=== PATIENT | female | born 1965 | race Caucasian/White ===

== ENCOUNTER 2016-08-27 23:04 | Inpatient (IN) | payer SELFPAY ==
--- NOTE | ~2016-08-27 | DS ---
Discharge Summary [facility] [id number] [place]. [address] NAME: CELINA JOSE : 67 STATUS : DIS IN PAT#: [id number] AGE: 51 ADM/REG DATE : 08/28/16 MR#: [id number] REPORT SERV DATE: 09/04/16 DICTATED BY: DATE: REPORT STATUS : Draft TRANSCRIBED BY: MODL DATE: 09/03/16 ADMISSION DATE: 08/28/2016 DISCHARGE DATE: 09/03/2016 DISCHARGE DIAGNOSES: 1. Acute hepatitis C. 2. Rule out pancreatic mass. 3. Increased liver function tests secondary to acute hepatitis C. 4. Portal hypertension. 5. Current IV drug use of heroin. 6. History of opioid abuse. 7. Thrombocytopenia. 8. Transaminitis. 9. Tobacco abuse. 10.Abnormal gallbladder on contrasted CT. CONSULTATIONS: 1. Dr. Susan Ling with hepatology. 2. [facility] with GI. 3. Dr. Teixeira with General surgery. PROCEDURES AND IMAGIN. On 08/28/2016, portable chest x-ray showed bibasilar atelectasis, right greater than left. Otherwise, no acute cardiopulmonary abnormality. 2. Hepatic echo showed a discrete mass at the head of the pancreas with gallbladder abnormality suggesting chronic cholecystitis. 3. On 08/29/2016, MRI of the abdomen without contrast showed:. a. Increasing severe gallbladder wall edema with wall thickness greater than 1.5 cm in width and increasing right abdominal mild ascites and fat stranding. b. No clear pancreatic mass lesion noticed on this noncontrast MRI. There are mild periportal/aortocaval enlarged lymph nodes. c. Periportal edema and few small subcentimeter cysts on the liver. d. Borderline splenomegaly. 4. On 08/31/2016, CT of the pancreas with and without contrast showed soft tissue mass adjacent to the head of the pancreas measuring 2.7 mm x 1.6 mm consistent with an enlarged lymph node. 5. On 09/03/2016, an upper EUS was done that showed unremarkable examination of the pancreas and biliary tree with no suggestion of a pancreatic mass or pathologic lymph node. HOSPITAL COURSE: This is a 51-year-old female with no medical history, presenting with fever, chills, and cough for three days. Please see admission H and P by Dr. Sukumar Castrejon. At that time, the patient's AST was 1355 and ALT was 1336. Alkaline phosphatase was 471. Consultation was placed to GI for evaluation of acute hepatitis and possible pancreatic mass. Please see dictation by PHAN Bedoya, on 08/29/2016. Please see dictation of interim discharge, by Elmo Vazquez NP, on 09/03/2016. Discharge Summary [address] [address] NAME: CELINA JOSE : 67 STATUS : DIS IN PAT#: [id number] AGE: 51 ADM/REG DATE : 08/28/16 MR#: [id number] REPORT SERV DATE: 09/04/16 DICTATED BY: DATE: REPORT STATUS : Draft TRANSCRIBED BY: KIKI DATE: 09/03/16 During his consultations with the patient, she did admit of a significant history of IV drug use with heroin and opioid dependence and abuse. At that time, he initiated a low-dose fentanyl patch since she was high risk for withdrawal and subsequent decompensation. The patient also has a history of tobacco abuse, and upon my discussion with her about that today, the patient states that she only smokes maybe two cigarettes a day and has refused her Habitrol patch which he had ordered. She has been going outside to smoke with a running IV and has been seen across the street off the campus with her IV pump. The patient has also had extensive discussion with case management about a possible drug rehab discharge, and the patient has expressed no interest in rehab facilities. The patient has been living in an abandoned house according to Case Management, and the patient desires to go back there. The patient's liver enzymes and viral load as well as her RNA have continued to be extremely elevated. It was suggested that the patient follow up with Dr. Ling and the [facility] regarding her ongoing symptomatology. The patient is reluctant to have appointments made at this time. Due to the patient's current heroin use, we will not be ordering any fentanyl patches upon her discharge. The patient is aware that her gallbladder will need to be removed at a later date and is familiar with Dr. Teixeira and will follow up with him if needed. The patient has had diminishing signs and symptoms of her hepatitis since admission and today states she is feeling back to baseline. PHYSICAL EXAMINATION: VITAL SIGNS: Blood pressure 102/69, O2 saturation is 94% on room, temperature is 96.9, and heart rate is 85. HEENT: Head is atraumatic and normocephalic. Pupils are equal, round, and reactive to light. Sclerae are clear and nonicteric. NECK: Neck is supple with no palpable lymphadenopathy or thyromegaly. Neck veins are flat. CARDIAC: S1 and S2 with no obvious murmurs, rubs, or gallops. LUNGS: Clear to auscultation with normal respiratory effort. GI: Abdomen is firm in right upper quadrant and tender to palpation. Otherwise, it is soft and nontender in remaining three quadrants. Bowel sounds are active in three quadrants. The patient has normal bowel habitus. EXTREMITIES: No significant edema, clubbing, or cyanosis. All pulses are present and equal bilaterally. MUSCULOSKELETAL: Moves all extremities x4. The patient is ambulatory without assistance. No difficulties with balance. SKIN: Dry and intact with normal color and turgor. NEUROPSYCHIATRIC: The patient is alert and oriented x4, pleasant, and cooperative. DISCHARGE DIET: Low fat. DISCHARGE MEDICATIONS: There are none. ALLERGIES: THE PATIENT HAS NO KNOWN DRUG ALLERGIES. DISCHARGE INSTRUCTIONS: The patient is to follow up with Dr. Ling in one month, Dr. Teixeira as needed for her gallbladder, and Dr. Cleveland and Dr. Art as needed. Should the patient have any more episodes such as those that brought her in, she is to call her PCP or present to the ER. Discharge Summary [address] [address] NAME: CELINA JOSE : 67 STATUS : DIS IN PAT#: [id number] AGE: 51 ADM/REG DATE : 08/28/16 MR#: [id number] REPORT SERV DATE: 09/04/16 DICTATED BY: DATE: REPORT STATUS : Draft TRANSCRIBED BY: MODL DATE: 09/03/16 Approximately 30 minutes has been spent coordinating discharge care of this patient including [id number] encounter and summarization of the discharge. VIOLET/KIKI Rupal Lala NP / [id number] CC: Otilio Llamas MD
--- NOTE | ~2016-08-27 | HP ---
History And Physical [facility] [address] [place]. [address] NAME: CELINA JOSE : 67 STATUS : ADM IN [facility]#: [id number] AGE: 51 ADM/REG DATE : 08/28/16 MR#: [id number] REPORT SERV DATE: 08/28/16 DICTATED BY: SUKUMAR CASTREJON DATE: 08/28/16 REPORT STATUS : Draft TRANSCRIBED BY: MODFarzana DATE: 08/28/16 DATE OF ADMISSION: 08/27/2016 CHIEF COMPLAINT: Fevers and chills with cough. HISTORY OF PRESENT ILLNESS: This is a 51-year-old lady with no medical history presenting with fevers, chills, and cough for three days. The patient reports the cough is nonproductive and she has experienced some mild shortness of breath along with the cough. The patient came to the ER for further evaluation and care. In the ER, the patient was indeed found to be febrile to 101.1. The patient was also slightly tachycardic and tachypneic. The patient was then found to have elevated LFTs as well as CT of the abdomen and pelvis showing possible diffuse colitis. The patient however did not have any complaints of abdominal pain. The patient did admit to having some loose stools, but nothing that really concerned her. Internal Medicine consultation was requested for admission of the patient for further evaluation and care. REVIEW OF SYSTEMS: The patient has had fevers and chills at home. Otherwise, 14-point review of systems reviewed and negative other than mentioned above. MEDICATIONS: The patient does not take any medications at home. The patient reports that she has not taken any acetaminophen at home, but with questionable reliability. ALLERGIES: NKDA. PAST MEDICAL HISTORY: None. PAST SURGICAL HISTORY: Hysterectomy. FAMILY HISTORY: The patient denies any specific family history. SOCIAL HISTORY: The patient does smoke, but does not drink alcohol or use any illicit drugs. The patient lives at home with her . PHYSICAL EXAMINATION: VITAL SIGNS: Temperature 101.1, blood pressure 115/62, pulse 103, respiratory rate is 26, and saturating 93% on room air. NEUROLOGIC: The patient is slightly somnolent, but easily wakes. The patient is alert and oriented x3 with no focal neurologic deficits. GENERAL: The patient again is somnolent being 3 o'clock in the morning, but otherwise she wakes up and she is in no acute distress. The patient is cooperative. NECK: No JVD. No lymphadenopathy. Normal thyroid. CHEST: No midline sternotomy scar and no tenderness to palpation. LUNGS: Fairly clear to auscultation bilaterally with faint wheezes and rhonchi. Otherwise, the patient has normal respiratory effort on room air. History And Physical [address] [address] NAME: CELINA JOSE : 67 STATUS : ADM IN [facility]#: [id number] AGE: 51 ADM/REG DATE : 08/28/16 MR#: [id number] REPORT SERV DATE: 08/28/16 DICTATED BY: SUKUMAR CASTREJON DATE: 08/28/16 REPORT STATUS : Draft TRANSCRIBED BY: KIKI DATE: 08/28/16 CARDIOVASCULAR: The patient is slightly tachycardic with no murmurs, rubs, or gallops, and PMI is nondisplaced. ABDOMEN: Soft, and she does actually have tenderness on deep palpation in the right upper quadrant. Otherwise, the patient also has active bowel sounds and no organomegaly. EXTREMITIES: No edema. Normal distal pulses. No calf tenderness. SKIN: Clean, dry, warm, and intact. LABORATORY DATA: Sodium is 134, potassium 4.0, chloride 98, BUN 7, creatinine 0.72, glucose 101, calcium 8.5, total bilirubin is 1.4. There was no diff available for the bilirubin. AST is 1355, ALT 1336, alkaline phosphatase was 471. Lipase is within normal limits at 88. White blood cell count is 2.9, hemoglobin is 14.3, platelets 142, and INR is 1.1. Lactate is 1.5. Influenza panel was negative for both A and B. CT of the abdomen and pelvis revealed a diffuse colon wall thickening, suggesting possible colitis as well as normal gallbladder and dilatation of intrahepatic biliary duct. ASSESSMENT AND PLAN: This is a 51-year-old lady with no medical history presenting with systemic inflammatory response syndrome. 1. Systemic inflammatory response syndrome, unclear main source as the patient has complaints of upper respiratory infection, but the patient was also found to have acute hepatitis and colitis. 2. Acute hepatitis. 3. Possible colitis. 4. Smoking. PLAN: My plan is to admit the patient under telemetry monitoring. The patient will be given IV fluid resuscitation. For now the patient will be given IV Zosyn for a broad-spectrum coverage to include intraperitoneal infections. The patient will be given clear liquid diet only at this time. I will check hepatitis panel, direct and indirect bilirubin, serum tox as well as autoimmune labs to include CAROL. I will also go ahead and get right upper quadrant ultrasound in the morning. For smoking cessation, counseling was provided. Standard DVT prophylaxis. The patient is full code at this time. YSC/MODL Sukumar Castrejon MD / [id number]
--- NOTE | ~2016-08-27 | CN ---
Consultation Report [address] [place]. [address] NAME: CELINA JOSE : 67 STATUS : ADM IN PAT#: [id number] AGE: 51 ADM/REG DATE : 08/28/16 MR#: [id number] REPORT SERV DATE: 08/30/16 DICTATED BY: GEORGE ANDREWS III DATE: 08/30/16 REPORT STATUS : Draft TRANSCRIBED BY: MODL DATE: 08/30/16 CONSULTATION REPORT DATE OF CONSULTATION: 08/30/2016 REASON FOR CONSULT: 1. Abdominal pain. 2. Abnormal gallbladder seen on imaging and possible pancreatic mass. 3. Recommendation regarding surgical management. HISTORY OF PRESENT ILLNESS: I am asked to see this 51-year-old female who was hospitalized for the above reasons. The patient complains of abdominal pain. The pain is primarily in the right upper quadrant. The patient presented to the emergency room complaining of fever and chills and myalgias, which have been ongoing for four days. Further workup revealed evidence for acute hepatitis C. The patient also was found to have elevated liver enzymes. Her hepatitis C panel was found to be reactive. The patient has a history of IV drug abuse including recent heroin use about four days ago. She has no prior history of liver disease that she is aware of. PAST MEDICAL HISTORY: 1. Vague history of leukemia, two years ago, uncertain stage and treatment. 2. COPD. 3. History of IV drug abuse. 4. Migraine headaches. 5. Tobacco abuse. PAST SURGICAL HISTORY: Includes back surgery and hysterectomy. FAMILY HISTORY: Multiple family members have hepatitis C. SOCIAL HISTORY: The patient has history of illicit drug use, IV heroin use, and tobacco abuse. ALLERGIES: NONE. MEDICATIONS: None regularly. REVIEW OF SYSTEMS: The patient complains of abdominal pain, fever, and myalgias. A 14-point review of systems Consultation Report [address] [place]. [address] NAME: CELINA JOSE : 67 STATUS : ADM IN PAT#: [id number] AGE: 51 ADM/REG DATE : 08/28/16 MR#: [id number] REPORT SERV DATE: 08/30/16 DICTATED BY: GEORGE ANDREWS III DATE: 08/30/16 REPORT STATUS : Draft TRANSCRIBED BY: MODL DATE: 08/30/16 is otherwise unremarkable. PHYSICAL EXAMINATION: GENERAL: This is a female, in no acute distress. She is somewhat disheveled. She is alert and oriented x3. VITAL SIGNS: Blood pressure 90/57, temp 96.4, and pulse 74. HEENT: Unremarkable. Cranial nerves II through XII are normal. LUNGS: Clear. CARDIAC: Unremarkable. ABDOMEN: Soft with no guarding. No peritoneal signs. EXTREMITIES: Normal. LABORATORY DATA: White blood cell count 5.1, yesterday her white blood cell count was 2.9; hematocrit 42; platelet count is 113,000. Electrolytes are unremarkable. Serum albumin is low at 2.5. ALT is markedly elevated at 1982. Total bilirubin is elevated at 3.7. AST is 1542. Her hepatitis C antibody is reactive. Her imaging studies including MRI, which showed no definite evidence for pancreatic mass in spite of the findings seen on ultrasound. No contrast was given for the MRI. There is noted to be gallbladder wall edema with wall thickness. However, there is also noted to be periportal edema diffusely. Hepatic ultrasound shows a focal area of concern, the pancreatic head measuring 1.75 cm. The gallbladder wall is noted to be thickened, there are no gallstones noted. Common bile duct is not dilated. CT scan of the abdomen and pelvis, which I have reviewed shows edema in the portal region. ASSESSMENT: 1. A 51-year-old female with acute hepatitis. 2. Marked elevation of liver enzymes and jaundice secondary to acute hepatitis. 3. Vague pancreatic head mass seen on ultrasound, not seen on CT scan or MRI. 4. History of IV drug abuse. 5. Tobacco abuse. PLAN: The patient is stable at this time with no evidence for need for acute surgical intervention. I believe the gallbladder wall thickening seen on imaging is related to her acute hepatitis as is her pain. She has no gallstones on ultrasound. I definitely would not recommend cholecystectomy in the definite absence of symptoms of biliary colic or gallstones. Regarding the pancreatic head mass seen on ultrasound, this is not visualized on CT or MRI. However, I feel further workup and imaging regarding this is clearly indicated once her hepatitis resolves, with either 4-phase CT scan or an EUS or both. At this time, there is no evidence of need for acute surgical intervention for the above reasons. This plan has been explained to the patient. Her questions have been answered. She understands and agrees to this as planned. J/MODL Consultation Report [place] [facility] [id number] [place]. [address] NAME: CELINA JOSE : 67 STATUS : ADM IN PAT#: [id number] AGE: 51 ADM/REG DATE : 08/28/16 MR#: [id number] REPORT SERV DATE: 08/30/16 DICTATED BY: GEORGE ANDREWS III DATE: 08/30/16 REPORT STATUS : Draft TRANSCRIBED BY: KIKI DATE: 08/30/16 George Andrews III, M.D. / [id number] CC: Arley Cardona M.D.
--- NOTE | ~2016-08-27 | IDS ---
Interim Discharge Summary [facility] [address] [place]. [address] NAME: CELINA JOSE : 67 STATUS : ADM IN [facility]#: [id number] AGE: 51 ADM/REG DATE : 08/28/16 MR#: [id number] REPORT SERV DATE: 09/03/16 DICTATED BY: ELMO BUI DATE: 09/02/16 REPORT STATUS : Draft TRANSCRIBED BY: MODL DATE: 09/02/16 ADMISSION DATE: 08/28/2016 DISCHARGE DATE: CURRENT INTERIM DIAGNOSIS LIST: Include, 1. Acute hepatitis C infection. 2. Transaminitis. 3. Pancreatic head mass/lymph node enlargement. 4. IV drug abuse with heroin. 5. Opioid abuse and tobacco abuse. 6. Systemic inflammatory response. 7. Thrombocytopenia. HISTORY OF PRESENT ILLNESS: This is a 51-year-old female, who presented with fevers, chills and cough to the [facility] Emergency Room. Please see initial H and P of Dr. Sukumar Castrejon. The patient admitted to the Hospitalist Service further evaluation and treatment. Initially, placed on empiric antibiotic therapy. Lab work was ordered and followed including a hepatitis panel, CMPs, and autoimmune. CONSULTANTS DURING THIS ADMISSION: Include MENDEZ Biswas and Nicholas Gaspar with nurse practitioner with [facility]. General surgery, Dr. Teixeira. PROCEDURES AND IMAGING DURING THIS ADMISSION: Include a CT of the abdomen and pelvis showing liver and spleen mildly prominent edema surrounding the portal veins. Findings may be secondary to hepatitis and hepatic echo showing a discrete mass identified head of the pancreas, not visualized on prior CT scan. Gallbladder abnormal with fluid suggesting chronic cholecystitis, common bile duct not dilated. Otherwise, normal. An MRI of the abdomen that showed increasing severe gallbladder wall edema and wall thickness no clear pancreatic mass or lesion on the noncontrast MRI, periportal edema and a few small cysts in the liver borderline splenomegaly and a pancreas CT scan that did show a soft tissue mass adjacent to the head of the pancreas measuring 2.7 mm x 1.6 mm consistent with enlarged lymph node, also diffuse wall thickening of the gallbladder, diffuse edema within the mesentery and multiple small lymph nodes adjacent to the aorta. HOSPITAL COURSE: I began seeing the patient on 08/28/2016 and after discussion with the patient she did reveal her significant history of IV drug use with heroin and opioid dependence and abuse, initiated a low-dose fentanyl patch. She was high risk for withdrawals and subsequent decompensation in this, and she has tolerated this well. Also, tried a nicotine patch; however, she has refused this and continues to go ahead and smoke. Her transaminitis showed an ALT of 1336 AST of 1355 with a bilirubin of 1.4, initially. GI was consulted and has been following the patient during this admission. Her liver enzymes climbed as she got supportive treatment and underwent all the above-described imaging. Her antibiotics were continued initially given her symptomatic improvement and no clear toxic findings her antibiotics were discontinued. After the findings of the questionable mass of the pancreatic head, she did undergo a dedicated CT of the pancreas that showed an adjacent lymph node. She is currently scheduled for an EUS in the a.m. for further assessment biopsy Interim Discharge Summary [address] [address] NAME: CELINA JOSE : 67 STATUS : ADM IN [facility]#: [id number] AGE: 51 ADM/REG DATE : 08/28/16 MR#: [id number] REPORT SERV DATE: 09/03/16 DICTATED BY: ELMO BUI DATE: 09/02/16 REPORT STATUS : Draft TRANSCRIBED BY: MODL DATE: 09/02/16 of this and her transaminitis has begun to slowly improve and symptomatically she has improved as stated. Her PCR came back today showing an HCV RNA and V load of 5.5, and HCV RNA viral of 307,332. I have also spoken extensively with the patient about need for substance abuse rehab after discharge which she states that she is in agreement with. We will have case management to assist with this when the patient is ready for discharge. Also in relation to her gallbladder, Dr. Teixeira did evaluate the patient but did not feel at this time that her gallbladder needed to be removed although she likely will need follow up with that at a later date. Of note, she did develop a rash described as hives on her upper thighs that was itchy and has improved with dosage of Benadryl; otherwise, I have updated the patient at bedside. She is in agreement with this plan going forward. YOON/MODL Elmo Bui NP / [id number] CC: Arley Cardona M.D.
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
--- NOTE | ~2016-08-27 | EGD ---
EGD REPORT [facility] [address] [place] [address] NAME: CELINA JOSE : 67 STATUS : ADM IN PAT#: [id number] AGE: 51 ADM/REG DATE : 08/28/16 MR#: [id number] REPORT SERV DATE: 09/03/16 DICTATED BY: ROBIN BURNETTE DATE: 09/03/16 REPORT STATUS : Draft [facility]ANSCRIBED BY: [facility] DATE: 09/03/16 [facility] Center Patient Name: Celina Jose Date of : 1965 Attending MD: ROBIN BURNETTE MD Procedure Date No Time: 09/03/2016 Procedure: Upper EUS Indications: Abnormal ultrasound of the abdomen Medicines: Monitored Anesthesia Care Complications: No immediate complications. Estimated blood loss: None. Procedure: After obtaining informed consent, the endoscope was passed under direct vision. Throughout the procedure, the patient's blood pressure, pulse, and oxygen saturations were monitored continuously. The Endoscope was introduced through the mouth, and advanced to the second part of duodenum. The upper EUS was accomplished without difficulty. The patient tolerated the procedure well. Findings: Endosonographic Finding : There was no sign of significant endosonographic abnormality in the entire pancreas. No pathologic lymphadenopathy, no masses, no cysts, no calcifications, the pancreatic duct was thin in caliber, the pancreatic duct was regular in contour. There was dilation in the common bile duct which measured up to 7 mm. Endosonographic imaging of the visualized portion of the biliary system showed no stones, no sludge and no stricture. There was no sign of significant endosonographic abnormality in the ampulla. No masses were identified. The ampulla was endoscopically normal. Endosonographic imaging of the visualized portion of the liver showed no abnormalities. No lymphadenopathy seen. A limited doppler examination was performed and revealed no significant vascular abnormalities. Impression: - Unremarkable examination of the pancreas and biliary tree - No suggestion of a pancreatic mass or pathologic lymph nodes Recommendation: - Return patient to [facility] for [facility] care. - Return to liver clinic after discharge. EGD REPORT [facility] [address] [place]. [address] NAME: CELINA JOSE : 67 STATUS : ADM IN [facility]#: [id number] AGE: 51 ADM/REG DATE : 08/28/16 MR#: [id number] REPORT SERV DATE: 09/03/16 DICTATED BY: ROBIN BURNETTE DATE: 09/03/16 REPORT STATUS : Draft TRANSCRIBED BY: [email or web address] DATE: 09/03/16 Procedure Code(s): --- Professional --- 53378, Esophagogastroduodenoscopy, flexible, transoral; with endoscopic ultrasound examination, including the esophagus, stomach, and either the duodenum or a surgically altered stomach where the jejunum is examined distal to the anastomosis Diagnosis Code(s): --- Professional --- K83.8, Other specified diseases of biliary tract R93.5, Abnormal findings on diagnostic imaging of other abdominal regions, including retroperitoneum CPT copyright 2013 [employer]. All rights reserved. The codes documented in this report are preliminary and upon yarn worker review may be revised to meet current compliance requirements. Robin Burnette MD ROBIN BURNETTE MD 09/03/2016 8:11 AM This report has been signed electronically. Number of Addenda: 0 Note Initiated On: 09/03/2016 7:20 AM Scope Withdrawal Time 0 hours 0 minutes 0 seconds [address] [place] [address]
[2016-08-27 23:39] LABS: BASOPHILS ABSOLUTE 0.03 10/3/uL (0.0-0.16); EOSINOPHILS 4.8 %; EOSINOPHILS ABSOLUTE 0.14 10/3/uL (0.0-0.53); LYMPHOCYTES 23.8 %; LYMPHOCYTES ABSOLUTE 0.69 10/3/uL (0.67-4.30); MEAN CORPUSCULAR HEMOGLOB 30.1 pg (26.0-34.0); MEAN PLATELET VOLUME 9.9 fL (9.2-13.0); MONOCYTES 10.3 %; NEUTROPHILS 60.1 %; NEUTROPHILS ABSOLUTE 1.74 10/3/uL (2.02-8.40); RBC DISTRIBUTION WIDTH 13.5 % (12.0-16.0); RED CELL COUNT 4.75 10/6/uL (4.0-5.6)
[2016-08-27 23:44] LABS: ER CBC TAT 0 Hrs 12 MinsNP; HEMATOCRIT 41.7 % (36.0-48.0); HEMOGLOBIN 14.3 g/dL (12.0-16.0); MANUAL DIFF NO %; MEAN CORPUS HGB CONC 34.3 g/dL (32.0-36.0); MEAN CORPUSCULAR VOLUME 87.8 fL (80-100); PLATELET COUNT 142 10/3/uL (150-400); WHITE BLOOD CELLS 2.9 10/3/uL (4.5-10.5)
[2016-08-27 23:46] LABS: INTERNATIONAL NORMAL RATI 1.1 UNITS (-)
[2016-08-27 23:47] LABS: PARTIAL THROMBO TIME 40.7 SEC (22.5-37.2)
[2016-08-27 23:55] LABS: LACTATE 1.5 MMOL/L (0.3-2.4)
[2016-08-27 23:59] LABS: A/G RATIO 0.8 (0.7-1.9); ALBUMIN 3.2 G/DL (3.5-5.0); CALCIUM, SERUM 8.5 MG/DL (8.5-10.4); CHLORIDE, SERUM 98 MMOL/L (96-112); CO2 (CARBON DIOXIDE) 25 MMOL/L (24-34); CREATININE 0.72 MG/DL (0.55-1.02); GFR AFRICAN AMERICAN 113 ML/MIN (>=60); GFR NON AFRICAN AMERICAN 98 ML/MIN (>=60); GLOBULIN 3.8 G/DL (2.5-4.1); GLUCOSE, SERUM 101 MG/DL (60-99); SGOT(AST) 1355 U/L (5-40); SGPT(ALT) 1336 U/L (5-65); SODIUM, SERUM 134 MMOL/L (135-148)
[2016-08-28] LABS: ALKALINE PHOSPHATASE 471 U/L (45-117); BUN (BLOOD UREA NITROGEN) 7 MG/DL (6-23); TOTAL BILIRUBIN 1.4 MG/DL (0-1.2)
[2016-08-28 01:09] LABS: INFLUENZA A SCREEN NEGATIVE (NEGATIVE); INFLUENZA B SCREEN NEGATIVE (NEGATIVE)
[2016-08-28 02:43] LABS: ASCORBIC ACID (UR NOT ORDER) NEG (NEG); BILIRUBIN, URINE MODERATE (NEG); ER URINALYSIS TAT 0 Hrs 00 Mins; KETONE, URINE NEGATIVE (NEG); LEUKOCYTE ESTERASE(NOT OR NEG (NEG); NITRITE (URINE) NEG (NEG); WBC (NOT ORDERED) (RFLEX) 5 (0-5)
[2016-08-28 06:07] LABS: BASOPHILS 0.8 %; BASOPHILS ABSOLUTE 0.02 10/3/uL (0.0-0.16); EOSINOPHILS 3.8 %; EOSINOPHILS ABSOLUTE 0.09 10/3/uL (0.0-0.53); HEMATOCRIT 38.1 % (36.0-48.0); LYMPHOCYTES 29.4 %; MANUAL DIFF NO %; MEAN CORPUS HGB CONC 34.1 g/dL (32.0-36.0); MEAN CORPUSCULAR HEMOGLOB 30.2 pg (26.0-34.0); MEAN CORPUSCULAR VOLUME 88.6 fL (80-100); MEAN PLATELET VOLUME 10.1 fL (9.2-13.0); MONOCYTES 10.5 %; MONOCYTES ABSOLUTE 0.25 10/3/uL (0.21-1.20); NEUTROPHILS 55.5 %; NEUTROPHILS ABSOLUTE 1.32 10/3/uL (2.02-8.40); PLATELET COUNT 120 10/3/uL (150-400); RBC DISTRIBUTION WIDTH 13.7 % (12.0-16.0); WHITE BLOOD CELLS 2.4 10/3/uL (4.5-10.5)
[2016-08-28 06:08] LABS: INTERNATIONAL NORMAL RATI 1.3 UNITS (-); PROTIME (NOT ORD) 15.8 SEC (12.0-14.5)
[2016-08-28 06:20] LABS: A/G RATIO 0.9 (0.7-1.9); ALBUMIN 2.7 G/DL (3.5-5.0); BUN (BLOOD UREA NITROGEN) 9 MG/DL (6-23); CALCIUM, SERUM 8.1 MG/DL (8.5-10.4); CHLORIDE, SERUM 101 MMOL/L (96-112); CO2 (CARBON DIOXIDE) 23 MMOL/L (24-34); CREATININE 0.63 MG/DL (0.55-1.02); DIRECT BILIRUBIN 1.4 MG/DL (0.0-0.4); GFR AFRICAN AMERICAN 121 ML/MIN (>=60); GFR NON AFRICAN AMERICAN 105 ML/MIN (>=60); GLOBULIN 3.1 G/DL (2.5-4.1); GLUCOSE, SERUM 92 MG/DL (60-99); INDIRECT BILIRUBIN(NOT ORDER) 0.4 MG/DL (0.1-0.9); POTASSIUM, SERUM 3.9 MMOL/L (3.5-5.3); SGOT(AST) 1293 U/L (5-40); SGPT(ALT) 1233 U/L (5-65); SODIUM, SERUM 133 MMOL/L (135-148); TOTAL BILIRUBIN 1.8 MG/DL (0-1.2); TOTAL PROTEIN 5.8 G/DL (6.0-8.5)
[2016-08-28 06:21] LABS: ACETAMINOPHEN LEVEL (TYLENOL) < 2.0 MCG/ML (10.0-20.0); ALCOHOL < 10 MG/DL (0); ALKALINE PHOSPHATASE 395 U/L (45-117); SALICYLATE < 1.7 MG/DL (-)
[2016-08-28 06:50] LABS: PROCALCITONIN 0.25 ng/mL (<0.5)
[2016-08-28 10:57] LABS: HEPATITIS B SURFACE ANTIGEN NON-REACTIVE (NON-REACT)
[2016-08-28 11:25] LABS: HEPATITIS B CORE AB IGM NON-REACTIVE (NON-REAC)
[2016-08-28 11:26] LABS: HEP A ANTIBODY IGM NON-REACTIVE (NON-REACT)
[2016-08-28 12:25] LABS: ANA PATTERN SPECKLED; ANA TITER 1:40 TITER
[2016-08-28 13:27] LABS: HEPATITIS C ANTIBODY REACTIVE (NON-REACT)
[2016-08-29 05:11] LABS: BASOPHILS ABSOLUTE 0.03 10/3/uL (0.0-0.16); EOSINOPHILS ABSOLUTE 0.03 10/3/uL (0.0-0.53); HEMATOCRIT 40.9 % (36.0-48.0); HEMOGLOBIN 13.6 g/dL (12.0-16.0); IMMATURE GRANULOCYTES 0.3 %; IMMATURE GRANULOCYTES ABSOLUTE 0.01 10/3/uL (0.0-0.11); LYMPHOCYTES ABSOLUTE 1.04 10/3/uL (0.67-4.30); MEAN CORPUS HGB CONC 33.3 g/dL (32.0-36.0); MEAN CORPUSCULAR HEMOGLOB 28.6 pg (26.0-34.0); MEAN PLATELET VOLUME 10.1 fL (9.2-13.0); MONOCYTES 10.7 %; MONOCYTES ABSOLUTE 0.31 10/3/uL (0.21-1.20); NEUTROPHILS ABSOLUTE 1.47 10/3/uL (2.02-8.40); PLATELET COUNT 129 10/3/uL (150-400); RBC DISTRIBUTION WIDTH 13.8 % (12.0-16.0); RED CELL COUNT 4.76 10/6/uL (4.0-5.6); WHITE BLOOD CELLS 2.9 10/3/uL (4.5-10.5)
[2016-08-29 05:18] LABS: MANUAL DIFF NO %; MEAN CORPUSCULAR VOLUME 85.9 fL (80-100)
[2016-08-29 05:44] LABS: ALBUMIN 2.8 G/DL (3.5-5.0); ALKALINE PHOSPHATASE 388 U/L (45-117); CALCIUM, SERUM 8.6 MG/DL (8.5-10.4); CHLORIDE, SERUM 104 MMOL/L (96-112); CO2 (CARBON DIOXIDE) 23 MMOL/L (24-34); CREATININE 0.67 MG/DL (0.55-1.02); GFR AFRICAN AMERICAN 119 ML/MIN (>=60); GFR NON AFRICAN AMERICAN 102 ML/MIN (>=60); GLUCOSE, SERUM 88 MG/DL (60-99); POTASSIUM, SERUM 4.1 MMOL/L (3.5-5.3); SGOT(AST) 1693 U/L (5-40); SGPT(ALT) 2000 U/L (5-65); SODIUM, SERUM 138 MMOL/L (135-148); TOTAL PROTEIN 6.1 G/DL (6.0-8.5); ULTRASENSITIVE TSH 0.561 MCIU/ML (0.358-3.740)
[2016-08-29 05:45] LABS: BUN (BLOOD UREA NITROGEN) 5 MG/DL (6-23); DIRECT BILIRUBIN 2.4 MG/DL (0.0-0.4); INDIRECT BILIRUBIN(NOT ORDER) 0.9 MG/DL (0.1-0.9); TOTAL BILIRUBIN 3.3 MG/DL (0-1.2)
[2016-08-29 22:44] LABS: THYROID PEROXIDASE AUTO AB 1.3 IU/mL (0.0-9.0)
[2016-08-29 23:29] LABS: THYROGLOBULIN AUTO ANTIBODY 1.9 IU/mL (0.0-4.0)
[2016-08-29 23:43] LABS: ALBUMIN 2.5 G/DL (3.5-5.0); TOTAL BILIRUBIN 3.7 MG/DL (0-1.2); TOTAL PROTEIN 5.5 G/DL (6.0-8.5)
[2016-08-29 23:44] LABS: DIRECT BILIRUBIN 2.8 MG/DL (0.0-0.4); INDIRECT BILIRUBIN(NOT ORDER) 0.9 MG/DL (0.1-0.9)
[2016-08-30 05:13] LABS: BUN (BLOOD UREA NITROGEN) 7 MG/DL (6-23); CALCIUM, SERUM 8.2 MG/DL (8.5-10.4); CHLORIDE, SERUM 105 MMOL/L (96-112); CO2 (CARBON DIOXIDE) 23 MMOL/L (24-34); CREATININE 0.67 MG/DL (0.55-1.02); GFR AFRICAN AMERICAN 119 ML/MIN (>=60); GFR NON AFRICAN AMERICAN 102 ML/MIN (>=60); GLUCOSE, SERUM 92 MG/DL (60-99); SODIUM, SERUM 136 MMOL/L (135-148)
[2016-08-30 05:16] LABS: INTERNATIONAL NORMAL RATI 1.5 UNITS (-); PROTIME (NOT ORD) 17.7 SEC (12.0-14.5)
[2016-08-30 05:30] LABS: BASOPHILS 1.6 %; BASOPHILS ABSOLUTE 0.08 10/3/uL (0.0-0.16); EOSINOPHILS 0.6 %; EOSINOPHILS ABSOLUTE 0.03 10/3/uL (0.0-0.53); HEMATOCRIT 42.7 % (36.0-48.0); HEMOGLOBIN 14.6 g/dL (12.0-16.0); IMMATURE GRANULOCYTES 0.2 %; IMMATURE GRANULOCYTES ABSOLUTE 0.01 10/3/uL (0.0-0.11); LYMPHOCYTES 68.7 %; LYMPHOCYTES ABSOLUTE 3.49 10/3/uL (0.67-4.30); MEAN CORPUS HGB CONC 34.2 g/dL (32.0-36.0); MEAN CORPUSCULAR VOLUME 87.9 fL (80-100); MEAN PLATELET VOLUME 10.7 fL (9.2-13.0); MONOCYTES 5.3 %; MONOCYTES ABSOLUTE 0.27 10/3/uL (0.21-1.20); NEUTROPHILS 23.6 %; PLATELET COUNT 113 10/3/uL (150-400); RED CELL COUNT 4.86 10/6/uL (4.0-5.6)
[2016-08-30 05:32] LABS: MANUAL DIFF NO %; WHITE BLOOD CELLS 5.1 10/3/uL (4.5-10.5)
[2016-08-30 05:58] LABS: PROCALCITONIN 0.77 ng/mL (<0.5)
[2016-08-30 14:00] LABS: SMOOTH MUSCLE ANTIBODIES Negative (NEG)
[2016-08-31 06:54] LABS: BASOPHILS 0.5 %; BASOPHILS ABSOLUTE 0.03 10/3/uL (0.0-0.16); EOSINOPHILS 0.8 %; EOSINOPHILS ABSOLUTE 0.05 10/3/uL (0.0-0.53); HEMOGLOBIN 13.1 g/dL (12.0-16.0); IMMATURE GRANULOCYTES 0.3 %; IMMATURE GRANULOCYTES ABSOLUTE 0.02 10/3/uL (0.0-0.11); LYMPHOCYTES 69.8 %; LYMPHOCYTES ABSOLUTE 4.55 10/3/uL (0.67-4.30); MEAN CORPUS HGB CONC 34.7 g/dL (32.0-36.0); MEAN CORPUSCULAR HEMOGLOB 30.3 pg (26.0-34.0); MEAN CORPUSCULAR VOLUME 87.3 fL (80-100); MEAN PLATELET VOLUME 10.4 fL (9.2-13.0); MONOCYTES 5.8 %; MONOCYTES ABSOLUTE 0.38 10/3/uL (0.21-1.20); NEUTROPHILS 22.8 %; NEUTROPHILS ABSOLUTE 1.49 10/3/uL (2.02-8.40); PLATELET COUNT 101 10/3/uL (150-400); RBC DISTRIBUTION WIDTH 14.3 % (12.0-16.0); RED CELL COUNT 4.32 10/6/uL (4.0-5.6); WHITE BLOOD CELLS 6.5 10/3/uL (4.5-10.5)
[2016-08-31 06:56] LABS: HEMATOCRIT 37.7 % (36.0-48.0); MANUAL DIFF NO %
[2016-08-31 07:15] LABS: ALBUMIN 2.1 G/DL (3.5-5.0); BUN (BLOOD UREA NITROGEN) 9 MG/DL (6-23); CALCIUM, SERUM 7.7 MG/DL (8.5-10.4); CHLORIDE, SERUM 105 MMOL/L (96-112); CO2 (CARBON DIOXIDE) 25 MMOL/L (24-34); CREATININE 0.69 MG/DL (0.55-1.02); GFR AFRICAN AMERICAN 118 ML/MIN (>=60); GFR NON AFRICAN AMERICAN 102 ML/MIN (>=60); GLUCOSE, SERUM 93 MG/DL (60-99); POTASSIUM, SERUM 3.8 MMOL/L (3.5-5.3); SGOT(AST) 883 U/L (5-40); SGPT(ALT) 1371 U/L (5-65); SODIUM, SERUM 138 MMOL/L (135-148); TOTAL PROTEIN 4.7 G/DL (6.0-8.5)
[2016-08-31 07:16] LABS: ALKALINE PHOSPHATASE 329 U/L (45-117); DIRECT BILIRUBIN 3.3 MG/DL (0.0-0.4); TOTAL BILIRUBIN 4.3 MG/DL (0-1.2)
[2016-08-31 07:33] LABS: BAND NEUTROPHILS 4 %; EOSINOPHILS 2 %; EOSINOPHILS ABSOLUTE (CALC) 0.13 10/3/uL (0.0-0.53); LYMPHOCYTES 57 %; LYMPHOCYTES ABSOLUTE (CALC) 3.71 10/3/uL (0.67-4.30); MONOCYTES 8 %; MONOCYTES ABSOLUTE (CALC) 0.52 10/3/uL (0.21-1.20); NEUTROPHILS ABSOLUTE (CALC) 2.15 10/3/uL (2.02-8.40); PLATELET ESTIMATE SLT DEC (ADEQUATE); SEGMENTED NEUTROPHIL (0) 29 %; TOTAL NUCLEATED CELLS 100
[2016-08-31 07:35] LABS: BURR CELLS 1+ (3-10/OIF) (0-2/OIF)
[2016-09-01 06:06] LABS: BASOPHILS 0.4 %; BASOPHILS ABSOLUTE 0.02 10/3/uL (0.0-0.16); EOSINOPHILS 1.4 %; EOSINOPHILS ABSOLUTE 0.07 10/3/uL (0.0-0.53); HEMATOCRIT 38.5 % (36.0-48.0); HEMOGLOBIN 13.2 g/dL (12.0-16.0); IMMATURE GRANULOCYTES 0.6 %; IMMATURE GRANULOCYTES ABSOLUTE 0.03 10/3/uL (0.0-0.11); LYMPHOCYTES ABSOLUTE 3.05 10/3/uL (0.67-4.30); MEAN CORPUS HGB CONC 34.3 g/dL (32.0-36.0); MEAN CORPUSCULAR HEMOGLOB 30.1 pg (26.0-34.0); MEAN CORPUSCULAR VOLUME 87.7 fL (80-100); MONOCYTES 7.8 %; MONOCYTES ABSOLUTE 0.39 10/3/uL (0.21-1.20); NEUTROPHILS 28.8 %; NEUTROPHILS ABSOLUTE 1.44 10/3/uL (2.02-8.40); PLATELET COUNT 114 10/3/uL (150-400); RBC DISTRIBUTION WIDTH 14.5 % (12.0-16.0); RED CELL COUNT 4.39 10/6/uL (4.0-5.6)
[2016-09-01 06:07] LABS: MANUAL DIFF NO %
[2016-09-01 06:29] LABS: A/G RATIO 0.8 (0.7-1.9); ALBUMIN 2.5 G/DL (3.5-5.0); ALKALINE PHOSPHATASE 406 U/L (45-117); BUN (BLOOD UREA NITROGEN) 8 MG/DL (6-23); CALCIUM, SERUM 8.1 MG/DL (8.5-10.4); CHLORIDE, SERUM 105 MMOL/L (96-112); CO2 (CARBON DIOXIDE) 27 MMOL/L (24-34); CREATININE 0.64 MG/DL (0.55-1.02); GFR AFRICAN AMERICAN 121 ML/MIN (>=60); GFR NON AFRICAN AMERICAN 104 ML/MIN (>=60); GLUCOSE, SERUM 94 MG/DL (60-99); POTASSIUM, SERUM 3.8 MMOL/L (3.5-5.3); SGOT(AST) 580 U/L (5-40); SGPT(ALT) 1174 U/L (5-65); SODIUM, SERUM 139 MMOL/L (135-148); TOTAL PROTEIN 5.5 G/DL (6.0-8.5)
[2016-09-02 00:03] LABS: HCV RNA VIRAL LOAD 5.5 (NOTDET)
[2016-09-02 03:53] LABS: BASOPHILS 0.2 %; BASOPHILS ABSOLUTE 0.01 10/3/uL (0.0-0.16); EOSINOPHILS 2.1 %; EOSINOPHILS ABSOLUTE 0.09 10/3/uL (0.0-0.53); HEMATOCRIT 36.4 % (36.0-48.0); HEMOGLOBIN 12.1 g/dL (12.0-16.0); IMMATURE GRANULOCYTES 0.5 %; IMMATURE GRANULOCYTES ABSOLUTE 0.02 10/3/uL (0.0-0.11); LYMPHOCYTES 60.7 %; LYMPHOCYTES ABSOLUTE 2.59 10/3/uL (0.67-4.30); MEAN CORPUS HGB CONC 33.2 g/dL (32.0-36.0); MEAN CORPUSCULAR HEMOGLOB 28.7 pg (26.0-34.0); MEAN CORPUSCULAR VOLUME 86.3 fL (80-100); MONOCYTES 10.1 %; MONOCYTES ABSOLUTE 0.43 10/3/uL (0.21-1.20); NEUTROPHILS 26.4 %; NEUTROPHILS ABSOLUTE 1.13 10/3/uL (2.02-8.40); PLATELET COUNT 117 10/3/uL (150-400); RBC DISTRIBUTION WIDTH 14.7 % (12.0-16.0); RED CELL COUNT 4.22 10/6/uL (4.0-5.6); WHITE BLOOD CELLS 4.3 10/3/uL (4.5-10.5)
[2016-09-02 03:54] LABS: MANUAL DIFF NO %
[2016-09-02 04:13] LABS: A/G RATIO 0.8 (0.7-1.9); ALBUMIN 2.4 G/DL (3.5-5.0); ALKALINE PHOSPHATASE 449 U/L (45-117); BUN (BLOOD UREA NITROGEN) 7 MG/DL (6-23); CALCIUM, SERUM 8.1 MG/DL (8.5-10.4); CHLORIDE, SERUM 105 MMOL/L (96-112); CO2 (CARBON DIOXIDE) 28 MMOL/L (24-34); CREATININE 0.57 MG/DL (0.55-1.02); GFR AFRICAN AMERICAN 125 ML/MIN (>=60); GFR NON AFRICAN AMERICAN 108 ML/MIN (>=60); GLUCOSE, SERUM 92 MG/DL (60-99); POTASSIUM, SERUM 4.1 MMOL/L (3.5-5.3); SGOT(AST) 343 U/L (5-40); SGPT(ALT) 842 U/L (5-65); SODIUM, SERUM 141 MMOL/L (135-148); TOTAL BILIRUBIN 3.8 MG/DL (0-1.2); TOTAL PROTEIN 5.4 G/DL (6.0-8.5)
[2016-09-03 04:06] LABS: BASOPHILS 0.3 %; BASOPHILS ABSOLUTE 0.01 10/3/uL (0.0-0.16); EOSINOPHILS 1.7 %; EOSINOPHILS ABSOLUTE 0.06 10/3/uL (0.0-0.53); HEMATOCRIT 36.3 % (36.0-48.0); HEMOGLOBIN 12.4 g/dL (12.0-16.0); IMMATURE GRANULOCYTES 0.3 %; IMMATURE GRANULOCYTES ABSOLUTE 0.01 10/3/uL (0.0-0.11); LYMPHOCYTES ABSOLUTE 1.91 10/3/uL (0.67-4.30); MEAN CORPUS HGB CONC 34.2 g/dL (32.0-36.0); MEAN CORPUSCULAR HEMOGLOB 29.7 pg (26.0-34.0); MEAN CORPUSCULAR VOLUME 87.1 fL (80-100); MONOCYTES 11.9 %; MONOCYTES ABSOLUTE 0.42 10/3/uL (0.21-1.20); NEUTROPHILS 31.8 %; NEUTROPHILS ABSOLUTE 1.13 10/3/uL (2.02-8.40); PLATELET COUNT 128 10/3/uL (150-400); RED CELL COUNT 4.17 10/6/uL (4.0-5.6); WHITE BLOOD CELLS 3.5 10/3/uL (4.5-10.5)
[2016-09-03 04:07] LABS: MANUAL DIFF NO %
[2016-09-03 04:12] LABS: PROTIME (NOT ORD) 13.2 SEC (12.0-14.5)
[2016-09-03 04:14] LABS: PARTIAL THROMBO TIME 88.4 SEC (22.5-37.2)
[2016-09-03 04:23] LABS: ALBUMIN 2.6 G/DL (3.5-5.0); BUN (BLOOD UREA NITROGEN) 9 MG/DL (6-23); CALCIUM, SERUM 8.6 MG/DL (8.5-10.4); CHLORIDE, SERUM 107 MMOL/L (96-112); CO2 (CARBON DIOXIDE) 27 MMOL/L (24-34); CREATININE 0.58 MG/DL (0.55-1.02); GFR AFRICAN AMERICAN 125 ML/MIN (>=60); GFR NON AFRICAN AMERICAN 107 ML/MIN (>=60); GLUCOSE, SERUM 102 MG/DL (60-99); POTASSIUM, SERUM 3.9 MMOL/L (3.5-5.3); SGOT(AST) 216 U/L (5-40); SGPT(ALT) 689 U/L (5-65); SODIUM, SERUM 142 MMOL/L (135-148); TOTAL PROTEIN 5.8 G/DL (6.0-8.5)
[2016-09-03 04:24] LABS: ALKALINE PHOSPHATASE 530 U/L (45-117); DIRECT BILIRUBIN 1.8 MG/DL (0.0-0.4); INDIRECT BILIRUBIN(NOT ORDER) 0.6 MG/DL (0.1-0.9); TOTAL BILIRUBIN 2.4 MG/DL (0-1.2)
[2016-09-10 16:14] LABS: THROMBIN ANTITHROMBIN COMPLEX 17.9 ng/mL (<4.3)
== END 2016-09-03 19:29 | disposition home or self-care (01) | DRG 442 ==
LOC: ER 23:04 → 5NO 08-28 03:13 → 7NO 08-28 18:12
PROVIDERS: Emergency Medicine; Internal Medicine; Internal Medicine Gastroenterology; Nurse Practitioner Family; Specialist
PROC: BD47ZZZ Ultrasonography of Gastrointestinal Tract (ICD-10-PCS; 2016-09-03)
PROC: BF4CZZZ Ultrasonography of Hepatobiliary System, All (ICD-10-PCS; 2016-09-03)
PROC: 0DJ08ZZ Inspection of Upper Intestinal Tract, Via Natural or Artificial Opening Endoscopic (ICD-10-PCS; principal; 2016-09-03 07:00)
DX: B17.10 Acute hepatitis C without hepatic coma (principal); K76.6 Portal hypertension; D69.6 Thrombocytopenia, unspecified; R18.8 Other ascites; R65.10 Systemic inflammatory response syndrome (SIRS) of non-infectious origin without acute organ dysfunction; F11.20 Opioid dependence, uncomplicated; F17.210 Nicotine dependence, cigarettes, uncomplicated; K81.1 Chronic cholecystitis; K83.8 Other specified diseases of biliary tract
CPT/HCPCS: 71010; 74170; 74176; 74181; 76705; 80048; 80053; 80074; 80076; 80307; 81001; 82140; 82247; 82248; 83520; 83605; 83690; 84145; 84443; 85025; 85610; 85730; 86039; 86255; 86376; 86800; 87040; 87522; 87804; 94640; 96374; 99285; A9270-GY; C1725; C9113; J1885; J1956; J2405; J2543; Q9967